=== PATIENT | male | born 1930 | race Caucasian/White ===

== ENCOUNTER → 2016-10-03 | Outpatient (CLI) | payer OTHER ==
[2016-07-16 13:07] VITALS: BP 116/48
--- NOTE | 2016-10-03 13:08 | RAD ---
HISTORY: COPD Study: Two view chest Comparison: 08/01/2016 Findings: There are persistent bilateral small pleural effusions, cardiomegaly, and central pulmonary vascular congestive changes. Postsurgical changes are seen status post sternotomy. The osseous structures ap pear intact. No pneumothorax. There is diffuse osteopenia. IMPRESSION: 1. Stable cardiomegaly with small bilateral pleural effusions and vascular congestion. Reported By:
== END ==
LOC: RAD 12:33
PROVIDERS: ATTEND Nurse Practitioner Family
DX: J44.9 Chronic obstructive pulmonary disease, unspecified (principal); R06.09 Other forms of dyspnea; R05 Cough
CPT/HCPCS: 71020

== ENCOUNTER 2017-01-23 14:53 | Emergency (ER) | payer OTHER ==
[2017-01-23 15:01] VITALS: BP 129/63; BMI 23.2
--- NOTE | 2017-01-23 16:13 | DR.GENAD ---
HPI - PCP Primary Care Physician: CHARU - HPI Comment HPI Comment: HISTORY BELOW. - Complaint/Symptoms Chief Complaint Doctors Comments: RIGHT CHEST AND RIGHT HAND PAIN. FELL YESTERDAY. SOB TODAY. Chief Complaint:: PT C/O SEVERE RT RIB PAIN S/P FALL. PT STATES HE FELL YESTERDAY AND FELL ONTO A CONCRETE FLOOR. - Nurses notes reviewed Nurses Notes Review: Yes - Source History Provided: Patient - Mode of Arrival Mode of Arrival: Ambulatory - Timing Onset of Chief Complaint: 01/22/17 Came on: Suddenly - Duration Duration: Constant Duration: Days - Severity Severity: Moderate PMH - PMH Past Medical History: Yes Past Medical History: Coronary Artery Disease, Dyslipidemia, [place], Renal Disease Past Surgical History: Yes Surgical History: CABG/Valve Surgery, Cholecystectomy, Tonsillectomy, TURP, Other - Family History History of Family Medical Conditions: Yes Family Medical History: Coronary Artery Disease, Hypertension - Social History Does any household member use tobacco: No Alcohol Use: None Do you use any recreational Drugs:: No Lives With: Family Lives Where: Home - infectious screening In the last 2 months have you had wt loss of >10#?: NO Have you had fever, night sweats or hemotysis?: No Have you traveled outside the country in the last 6 months?: No Isolation: Standard ROS - Review of Systems Constitutional: No Symptoms Reported Eyes: No Symptoms Reported ENTM: No Symptoms Reported Respiratoy: Short of Breath. negative: Productive Cough, Non-Productive Cough, Wheezing, Hemoptysis Cardiovascular: Chest Pain (RIGHT LOWER CHEST PAIN.) Gastrointestinal/Abdominal: No Symptoms Reported Genitourinary: No Symptoms Reported Neurological: No Symptoms Reported Musculoskeletal: Right, Hand Integumentary: Bruises Hematologic/Lymphatic: No Symptoms Reported Endocrine: No Symptoms Reported All Other Systems: Reviewed and Negative PE - Vital Signs Vitals: Temperature 97.5 F Pulse Rate 54 Respiratory Rate 20 Blood Pressure [Right Arm] 116/48 Blood Pressure [Left Arm] 133/78 Blood Pressure 129/63 O2 Sat by Pulse Oximetry 96 - General Limitations: No Limitations General Appearance: Alert - Head Head Exam: Normal Inspection - Eyes Eye exam: Normal Appearance - ENT ENT Exam: Normal External Ear Exam External Ear Exam: Normal External Inspection TM/Canal Exam: Bilateral Normal Nose Exam: Normal Nose Exam Mouth Exam: Normal Inspection Throat Exam: Normal Inspection - Neck Neck Exam: Trachea Midline - Chest Chest Inspection: Symmetric Chest Wall Rise - Respiratory Respiratory Exam: Normal Lung Sounds Bilat, Chest Wall Tenderness (RIGHT LOWER CHEST.) Respiratory Exam: Bilateral Clear to Auscultation - Cardiovascular Cardiovascular Exam: Regular Rate, Normal Rhythm, Normal Heart Sounds - Abdominal Exam Abdominal Exam: Normal Bowel Sounds, Soft. negative: Tenderness - Extremities Extremities Exam: Tenderness (LEFT HABD BRUISE SWOLLEN AND TENDER.) - Back Back Exam: Normal Inspection - Neurologic Neurological Exam: Alert, Oriented X3 - Psychiatric Psychiatric Exam: Normal Affect, Normal Mood - Skin Skin Exam: Erythema MDM - Additional Information Additional Information Obtained From: Family - Differential Diagnosis Differential Diagnosis: CONTUSION AND FRACTURE RIGHT RIB AND RIGHT HAND. Course - Treatment Treatment: SEE ORDERS - Education/Counseling Education/Counseling: Patient, Family, Education Educated On: Diagnosis, Needs for Follow Up ROR - XRAY XRAY Interpreted by: Radiologist XRAY Findings: REPORT DISCUSS WITH PATIENT. - Diagnosis Discharge Problem: Contusion of rib on right side Qualifiers: Encounter type: initial encounter Qualified Code(s): S20.211A - Contusion of right front wall of thorax, initial encounter Right rib fracture Qualifiers: Encounter type: initial encounter Rib fracture type: multiple ribs Fracture type: closed Qualified Code(s): S22.41XA - Multiple fractures of ribs, right side, initial encounter for closed fracture Contusion of right hand Qualifiers: Encounter type: initial encounter Qualified Code(s): S60.221A - Contusion of right hand, initial encounter Sprain of right hand Qualifiers: Encounter type: initial encounter Qualified Code(s): S63.91XA - Sprain of unspecified part of right wrist and hand, initial encounter - Discharge Plan Disposition: 01 HOME, SELF-CARE Condition: Stable Prescriptions: Hydrocodone-Acet 5 mg/325 mg [[place] 5/325 mg Tab] 1 tab PO Q12H PRN #14 tab PRN Reason: - Follow ups/Referrals Follow ups/Referrals: MARCO ANTONIO BOX [Primary Care Provider] - 01/24/17 - Instructions Instructions: Rib Contusion, Rib Fracture, [id number] Additional Instructions: RETURN TO ED IF WORSE.
--- NOTE | 2017-01-23 17:01 | RAD ---
HISTORY: Trauma, pain. Study: Three views of the right hand. Comparison: None. Findings: Diffuse osteopenia. Extensive vascular calcifications. Degenerative changes are seen about the hand and wrist. No acute cortical disruption or dislocation can be identified. No significant soft tissu e swelling or injury can be seen. IMPRESSION: No acute osseous abnormality. Reported By:
--- NOTE | 2017-01-23 17:34 | RAD ---
HISTORY: Trauma, pain. Study: Four views of the right ribs. Comparison: Chest x-ray dated October 04, 1999 17. Findings: The trachea is midline. The cardiac silhouette is enlarged but unchanged. Postsurgical changes stat us post CABG. Persistent blunting of the bilateral costophrenic angles. Chronic emphysematous joaquin es. No obvious focal consolidation, pleural effusion, or pneumothorax. Biapical scarring. Diffuse o steopenia. Mild deformity of the right lateral 6th and 7th ribs. These may represent nondisplaced fr actures. Remaining osseous structures appear intact. IMPRESSION: 1. No acute cardiopulmonary disease. 2. Question of nondisplaced fractures of the right lateral 6th and 7th ribs. Recommend clinical cor relation for point tenderness. Reported By:
== END 2017-01-23 18:02 | disposition home or self-care (01) ==
LOC: ER 15:08
DX: S20.211A Contusion of right front wall of thorax, initial encounter (principal); S22.41XA Multiple fractures of ribs, right side, initial encounter for closed fracture; S60.221A Contusion of right hand, initial encounter; S63.91XA Sprain of unspecified part of right wrist and hand, initial encounter; W19.XXXA Unspecified fall, initial encounter; Y92.9 Unspecified place or not applicable
CPT/HCPCS: 71111; 73130; 99282; 99283

== ENCOUNTER → 2017-04-01 | Outpatient (CLI) | payer OTHER ==
[~2017-04-01] MED LIST: NS 100 ML IV 100 ML IV ONE
[2017-04-01 09:38] LABS: CREATININE 1.3 mg/dL (0.70-1.30)
--- NOTE | 2017-04-03 09:22 | CT ---
HISTORY: Inguinal hernia without obstruction Study: CT of the abdomen pelvis Comparison: 04/16/2016 Technique: Serial axial images were obtained from the lung bases to the pubic symphysis without the u se of IV contrast. Findings: Chronic appearing interstitial changes are seen within both lungs. A diffuse reticulonodular and a tr ee-in-bud pattern are also seen and are most pronounced within the right lower lobe. A few focal subc entimeter well-defined nodules are demonstrated as well. Similar findings were noted on prior study. Small bilateral pleural effusions are also noted left greater than right. When appropriate, follow-up CT of the chest may be performed for further evaluation. Atherosclerotic changes are noted within e visualized coronary arteries and aorta. The liver demonstrates somewhat of a nodular appearance. Th e spleen, pancreas, and adrenals are grossly unremarkable in appearance given limitations of this non contrast exam. A subcentimeter exophytic lesion along the medial aspect of the lower pole of right ki dney is too small to accurately characterize. An approximate 2.5 cm exophytic lesion is seen along la teral margin of the right kidney and measured 2.7 cm on prior exam. This lesion does not demonstrate characteristics of a simple cyst may further evaluated with ultrasound if not already performed. A sm all hiatal hernia is noted. Stool and gas are seen throughout the colon to the level of the rectum. A few scattered diverticula are seen within the descending and sigmoid colon. The urinary bladder is s omewhat distended. Prostate is heterogeneous in appearance. Degenerative changes are seen throughout the visualized spine. Bilateral inguinal hernias fat are noted. No CT evidence of hydronephrosis is i dentified. IMPRESSION: Bilateral pleural effusions with additional pulmonary findings as discussed above. Follow-up CT of e chest may be performed for further evaluation as clinically indicated. Bilateral renal lesions as noted above. Correlation with ultrasound may be helpful if not already per formed. Diverticulosis. Bilateral inguinal hernias containing fat. Other findings as noted above. Reported By:
== END | disposition home or self-care (01) ==
LOC: RAD 09:02
PROVIDERS: ATTEND Nurse Practitioner Family
DX: K40.90 Unilateral inguinal hernia, without obstruction or gangrene, not specified as recurrent (principal); N28.9 Disorder of kidney and ureter, unspecified; K57.90 Diverticulosis of intestine, part unspecified, without perforation or abscess without bleeding; J90 Pleural effusion, not elsewhere classified
CPT/HCPCS: 36415; 74176; 82565; 84520; A4222

== ENCOUNTER → 2017-08-01 | Outpatient (CLI) | payer OTHER ==
--- NOTE | 2017-08-01 14:13 | RAD ---
History: Right hip pain Technique: AP view of the pelvis with frogleg lateral view of the right hip. Comparison:NONE Findings: The sacrum is partially obscured by overlying bowel contents. There is generalized osteopenia. There is no acute fracture or dislocation demonstrated. There is mild bilateral hip osteoarthrosis. There i s chondrocalcinosis of the articular cartilage of the right hip demonstrated. Impression: 1. No acute osseous abnormalities identified. 2. Mild bilateral hip osteoarthrosis. 3. 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 Reported By:
--- NOTE | 2017-08-01 16:09 | RAD ---
History: Right knee pain Technique: Three views of the right knee Comparison:NONE Findings: There is an oblique fracture of the proximal fibula. There is a subtle bony density projecting just l ateral to the lateral tibial plateau on the AP view. This is worrisome for a Segong fracture and has a high correlation with ACL injury. No significant joint effusion was demonstrated on the lateral vie w. Diffuse vascular calcifications are present. There is mild medial and patellofemoral osteoarthrosi s. Impression: 1. Nondisplaced fracture of the proximal fibula. 2. Subtle bony density projecting just lateral to the lateral tibial plateau, worrisome for Segond fr acture. This has a high correlation with an ACL injury. Please note that the lack of a significant sae int effusion, argues against this however. Clinical correlation is required. If there is concern for ligamentous injury correlation with MRI can be performed. Reported By:
--- NOTE | 2017-08-01 16:10 | RAD ---
History: Right hip pain. Back pain. Technique: Three views of the lumbar spine Comparison:NONE Findings: There is generalized osteopenia. There is mild to moderate multilevel DDD and spondylosis. This is mo st severe at L2-L3. There is no acute fracture, dislocation, or subluxation demonstrated. There is se maikol facet arthrosis at L4-5 and L5-S1 which result in neural foraminal stenosis. Impression: 1. No acute osseous abnormalities identified. 2. Multilevel degenerative changes are noted as discussed above. Neural foraminal stenosis is suggest ed at L4-5 and L5-S1. Reported By:
== END | disposition home or self-care (01) | DRG 556 ==
LOC: RAD 08:09
PROVIDERS: ATTEND Nurse Practitioner Family
DX: M25.551 Pain in right hip (principal); M54.5 Low back pain; M25.561 Pain in right knee; M51.36 Other intervertebral disc degeneration, lumbar region; S82.491A Other fracture of shaft of right fibula, initial encounter for closed fracture; X58.XXXA Exposure to other specified factors, initial encounter; M16.11 Unilateral primary osteoarthritis, right hip; M11.251 Other chondrocalcinosis, right hip
CPT/HCPCS: 72100; 73501; 73560

== ENCOUNTER 2018-07-19 07:29 | Inpatient (IN) ==
--- NOTE | 2018-07-19 08:03 | DR.DIZZY ---
HPI Time seen Time Seen by Provider: 07/19/18 07:54 PCP Primary Care Physician: MARIA TERESA WILSON Complaint Chief Complaint Doctor Comments: Patient presents to the ED via EMS with complaint of weakness. He his family reports that he has been very weak since coming home from the hospital [facility] status post treatment for pneumonia for two weeks. His health has been declining since being home. He has become very weak and not being able to walk on yesterday. The family has discussed to possibility of alf placement but have made a decision. 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 There is a home health nurse who comes two to three times weekly. Chief Complaint:: PT TO ER WITH C/O WEAKNESS, PT RECENTLY RELEASED FROM [facility] FOR PNEUMONIA, PT APPEARS TO BE VERY WEAK , PT LUNGS ARE CLEAR BILATERALLY AND PT HAS BRUISES TO HIS UPPER EXTS, UPON ARRIVAL EMS STATES PT'S SATS WERE IN THE 80'S ON RA, AND PT PLACED ON N/C 2 LPM,,BR Mode of Arrival Mode of Arrival: Stretcher Timing Onset of Chief Complaint: 07/18/18 Symptom Onset: Unknown Location of Weakness Weakness Location: None Context History of: None Stroke Symptoms: None PMH PMH Past Medical History: Yes Past Medical History: Coronary Artery Disease, Dyslipidemia, [place] and Renal Disease Past Surgical History: Yes Surgical History: CABG/Valve Surgery, Cholecystectomy, Tonsillectomy, TURP and Other Family History History of Family Medical Conditions: Yes Family Medical History: Coronary Artery Disease and Hypertension Social History Does patient currently use any type of tobacco product: No Have you used tobacco products in the last 12 months: No Type of Tobacco Use: None Does any household member use tobacco: No Alcohol Use: None Do you use any recreational Drugs:: No Lives With: Family Lives Where: Home infectious screening In the last 2 months have you had wt loss of >10#?: NO Have you had fever, night sweats or hemotysis?: No Have you traveled outside the country in the last 6 months?: No Isolation: Standard PE Vital Signs Vitals: Temperature 98.1 F Pulse Rate [Apical] 71 Pulse Rate 62 Respiratory Rate 21 Blood Pressure [Right Arm] 94/44 Blood Pressure [Left Arm] 105/55 Blood Pressure 85/45 O2 Sat by Pulse Oximetry 99 ROR Labs Reviewed Result Diagrams: 07/20/18 04:42 07/20/18 13:30 Laboratory: WBC 9.2 X10^3/uL (3.6-10.0) 07/20/18 04:42 RBC 3.02 X10^6/uL (4.7-6.0) L 07/20/18 04:42 Hgb 9.3 g/dL (13.5-18.0) L 07/20/18 04:42 Hct 28.0 % (42.0-54.0) L 07/20/18 04:42 MCV 92.6 fL (80.0-100.0) 07/20/18 04:42 MCH 30.8 pg (27.0-34.0) 07/20/18 04:42 MCHC 33.2 g/dL (33.0-35.0) 07/20/18 04:42 RDW 16.0 % (11.6-16.5) 07/20/18 04:42 Plt Count 83 X10^3/uL (150.0-450.0) L 07/20/18 04:42 MPV 8.1 fL (7.4-11.0) 07/20/18 04:42 Neut % (Auto) 81.5 % (42.0-75.0) H 07/20/18 04:42 Lymph % (Auto) 9.1 % (21.0-51.0) L 07/20/18 04:42 [place] % (Auto) 8.3 % (0.0-13.0) 07/20/18 04:42 Eos % (Auto) 0.9 % (0.9-2.9) 07/20/18 04:42 Baso % (Auto) 0.2 % (0.2-1.0) 07/20/18 04:42 Neut # (Auto) 7.5 x10^3/uL (2.2-4.8) H 07/20/18 04:42 Lymph # (Auto) 0.8 X10^3/uL (1.3-2.9) L 07/20/18 04:42 [place]wey # (Auto) 0.8 x10^3/uL (0.3-0.8) 07/20/18 04:42 Eos # (Auto) 0.1 x10^3/uL (0.0-0.2) 07/20/18 04:42 Baso # (Auto) 0.0 X10^3/uL (0.0-0.1) 07/20/18 04:42 Absolute Nucleated RBC 0.0 /100WBC 07/20/18 04:42 INR Target Range - 07/20/18 04:42 INR 6.84 (0.8-1.3) H* 07/20/18 04:42 APTT 100.5 SECONDS (22.9-36.5) H 07/20/18 04:42 PTT Comment - 07/20/18 04:42 Sodium 139 mmol/L (136-145) 07/20/18 13:30 Corrected Sodium TNP 07/20/18 13:30 Potassium 6.4 mmol/L (3.5-5.1) H* 07/20/18 13:30 Chloride 105 mmol/L (98-107) 07/20/18 13:30 Carbon Dioxide 20.5 mmol/L (21-32) L 07/20/18 13:30 BUN 167 mg/dL (7-18) H 07/20/18 13:30 Creatinine 13.20 mg/dL (0.70-1.30) H 07/20/18 13:30 Est GFR (MDRD) Af Amer 5 (>60) L 07/20/18 13:30 Est GFR (MDRD) Non-Af 4 (>60) L 07/20/18 13:30 Glucose 88 mg/dL (65-99) 07/20/18 13:30 Calcium 9.2 mg/dL (8.5-10.1) 07/20/18 13:30 Corrected Calcium 10.9 mg/dL (8.5-10.1) H 07/20/18 13:30 Magnesium 2.7 mg/dL (1.7-2.9) 07/20/18 04:42 Total Bilirubin 0.40 mg/dL (0.2-1.0) 07/20/18 13:30 AST 46 Units/L (15-37) H 07/20/18 13:30 ALT 11 Units/L (12-78) L 07/20/18 13:30 Alkaline Phosphatase 62 Units/L (46-116) 07/20/18 13:30 Creatine Kinase 340 Units/L (39-308) H 07/19/18 12:05 CK-MB (CK-2) 5.0 ng/mL (0-4.0) H* 07/19/18 12:05 CK/CKMB % Calc 1.5 % (<4) 07/19/18 12:05 Troponin I 0.39 ng/mL (0-1.5) 07/19/18 12:05 Total Protein 5.5 g/dL (6.4-8.2) L 07/20/18 13:30 Albumin 1.9 g/dL (3.4-5.0) L 07/20/18 13:30 Globulin 3.6 g/dL (2.5-4.5) 07/20/18 13:30 Albumin/Globulin Ratio 0.5 Ratio (1.1-2.1) L 07/20/18 13:30 Specimen Type Clean catch urine 07/19/18 09:17 Urine Color Yellow (YELLOW) 07/19/18 09:17 Urine Appearance Clear (CLEAR) 07/19/18 09:17 Urine pH 6.0 (5.0 - 8.0) 07/19/18 09:17 Ur Specific Pray 1.010 (1.000-1.030) 07/19/18 09:17 Urine Protein 3+ (NEGATIVE) 07/19/18 09:17 Urine Glucose (UA) Negative (NEGATIVE) 07/19/18 09:17 Urine Ketones Negative (NEGATIVE) 07/19/18 09:17 Urine Occult Blood 4+ (NEGATIVE) 07/19/18 09:17 Urine Nitrite Negative (NEGATIVE) 07/19/18 09:17 Urine Bilirubin Negative (NEGATIVE) 07/19/18 09:17 Urine Urobilinogen Normal (NORMAL) 07/19/18 09:17 Ur Leukocyte Esterase Negative (NEGATIVE) 07/19/18 09:17 Urine RBC 0-2 /HPF (NONE SEEN) 07/19/18 09:17 Urine WBC 0-2 /HPF (NONE SEEN) 07/19/18 09:17 Ur Squamous Epith Cells Negative /HPF (NEGATIVE) 07/19/18 09:17 Urine Bacteria Negative /HPF (NEGATIVE) 07/19/18 09:17 Ur Culture Indicated? No/not indicated 07/19/18 09:17 Digoxin 3.11 ng/mL (0.9-2) H* 07/20/18 04:42 Diagnosis Discharge Problem: Acute renal failure, Hyperkalemia, Hypercoagulable state
[2018-07-19] MEDS: NS 1000 ML 1,000 ML IV SCH ×2 (08:13→20:41)
[2018-07-19 08:26] LABS: BASOPHILS # (AUTO) 0.1 X10^3/uL (0.0-0.1); BASOPHILS % (AUTO) 0.6 % (0.2-1.0); EOSINOPHILS # (AUTO) 0.1 x10^3/uL (0.0-0.2); HEMATOCRIT 29.2 % (42.0-54.0); HEMOGLOBIN 9.9 g/dL (13.5-18.0); LYMPHOCYTES # (AUTO) 0.9 X10^3/uL (1.3-2.9); LYMPHOCYTES % (AUTO) 9.2 % (21.0-51.0); MEAN CORPUSCULAR HEMOGLOBIN 30.8 pg (27.0-34.0); MEAN CORPUSCULAR HGB CONC 33.9 g/dL (33.0-35.0); MEAN CORPUSCULAR VOLUME 90.7 fL (80.0-100.0); MEAN PLATELET VOLUME 8.2 fL (7.4-11.0); MONOCYTES # (AUTO) 0.9 x10^3/uL (0.3-0.8); MONOCYTES % (AUTO) 8.5 % (0.0-13.0); NEUTROPHILS # (AUTO) 8.3 x10^3/uL (2.2-4.8); NEUTROPHILS % (AUTO) 80.7 % (42.0-75.0); PLATELET COUNT 89 X10^3/uL (150.0-450.0); RED BLOOD COUNT 3.22 X10^6/uL (4.7-6.0); RED CELL DISTRIBUTION WIDTH 15.5 % (11.6-16.5); WHITE BLOOD COUNT 10.3 X10^3/uL (3.6-10.0)
--- NOTE | 2018-07-19 08:43 | CT ---
Exam: Head CT without contrast History: 87-year-old male with generalized weakness. Comparison: Previous head CT from 07/13/2016. Technique: Axial imaging was performed from the vertex to the base the skull without intravenous contrast being administered. Sagittal and coronal reformations were generated. Automated exposure control techniques were used for this exam. Findings: Generalized age related atrophic changes are again seen. However there is no evidence of intracranial hemorrhage or extracerebral fluid collections. Ventricles are symmetric in size and position with no mass effect. Patchy low density is present in a periventricular white matter distribution, consistent with chronic small vessel ischemia. On the bone windows, old bilateral parietal craniotomies are again seen. No acute bony abnormality is identified however. Visualized aspect of the paranasal sinuses and mastoid air cells are clear. Impression: No acute intracranial abnormality is seen on this exam. Chronic stable findings as described Reported By:
[2018-07-19 09:07] LABS: CALCIUM 9.2 mg/dL (8.5-10.1); CARBON DIOXIDE 20.9 mmol/L (21-32); CKMB % 1.5 % (<4); COR CA(FOR HYPOALB) 10.8 mg/dL (8.5-10.1); CREATININE 12.78 mg/dL (0.70-1.30); MAGNESIUM 2.9 mg/dL (1.7-2.9); TOTAL PROTEIN 5.7 g/dL (6.4-8.2); TROPONIN I 0.39 ng/mL (0-1.5)
[2018-07-19 09:14] LABS: CREATINE KINASE MB 4.5 ng/mL (0-4.0)
[2018-07-19 09:28] LABS: BILIRUBIN,URINE NEGATIVE (NEGATIVE); BLOOD/HEMOGLOBIN,URINE 4+ (NEGATIVE); GLUCOSE, URINE NEGATIVE (NEGATIVE); KETONES,URINE NEGATIVE (NEGATIVE); LEUKOCYTE ESTERASE ,URINE NEGATIVE (NEGATIVE); NITRITES,URINE NEGATIVE (NEGATIVE); PROTEIN,URINE 3+ (NEGATIVE); UROBILINOGEN,URINE NORMAL (NORMAL)
[2018-07-19 09:32] LABS: APPEARANCE,URINE CLEAR (CLEAR); COLOR,URINE YELLOW (YELLOW)
[2018-07-19 09:35] LABS: BACTERIA,URINE NEGATIVE /HPF (NEGATIVE); RBC,URINE 0-2 /HPF (NONE SEEN); SQUAMOUS EPITHELIAL CELL,UR NEGATIVE /HPF (NEGATIVE)
[2018-07-19] MEDS ORDERED: D50W ABBOJECT SYR IV ONE (09:51)
--- NOTE | 2018-07-19 09:51 | DR.DIZZY ---
HPI Time seen Time Seen by Provider: 07/19/18 07:54 PCP Primary Care Physician: MARIA TERESA WILSON Complaint Chief Complaint:: PT TO ER WITH C/O WEAKNESS, PT RECENTLY RELEASED FROM [facility] FOR PNEUMONIA, PT APPEARS TO BE VERY WEAK , PT LUNGS ARE CLEAR BILATERALLY AND PT HAS BRUISES TO HIS UPPER EXTS, UPON ARRIVAL EMS STATES PT'S SATS WERE IN THE 80'S ON RA, AND PT PLACED ON N/C 2 LPM,,BR Mode of Arrival Mode of Arrival: Stretcher Timing Onset of Chief Complaint: 07/18/18 Symptom Onset: Unknown Location of Weakness Weakness Location: None Context History of: None PMH PMH Past Medical History: Yes Past Medical History: Coronary Artery Disease, Dyslipidemia, [place] and Renal Disease Past Surgical History: Yes Surgical History: CABG/Valve Surgery, Cholecystectomy, Tonsillectomy, TURP and Other Family History History of Family Medical Conditions: Yes Family Medical History: Coronary Artery Disease and Hypertension Social History Does patient currently use any type of tobacco product: No Have you used tobacco products in the last 12 months: No Type of Tobacco Use: None Does any household member use tobacco: No Alcohol Use: None Do you use any recreational Drugs:: No Lives With: Family Lives Where: Home infectious screening In the last 2 months have you had wt loss of >10#?: NO Have you had fever, night sweats or hemotysis?: No Have you traveled outside the country in the last 6 months?: No Isolation: Standard PE Vital Signs Vitals: Temperature 97.9 F Pulse Rate 59 Respiratory Rate 20 Blood Pressure [Right Arm] 116/48 Blood Pressure [Left Arm] 133/78 Blood Pressure 95/45 O2 Sat by Pulse Oximetry 94 ROR Labs Reviewed Result Diagrams: 07/19/18 08:15 07/19/18 08:15 Laboratory: WBC 10.3 X10^3/uL (3.6-10.0) H 07/19/18 08:15 RBC 3.22 X10^6/uL (4.7-6.0) L 07/19/18 08:15 Hgb 9.9 g/dL (13.5-18.0) L 07/19/18 08:15 Hct 29.2 % (42.0-54.0) L 07/19/18 08:15 MCV 90.7 fL (80.0-100.0) 07/19/18 08:15 MCH 30.8 pg (27.0-34.0) 07/19/18 08:15 MCHC 33.9 g/dL (33.0-35.0) 07/19/18 08:15 RDW 15.5 % (11.6-16.5) 07/19/18 08:15 Plt Count 89 X10^3/uL (150.0-450.0) L 07/19/18 08:15 MPV 8.2 fL (7.4-11.0) 07/19/18 08:15 Neut % (Auto) 80.7 % (42.0-75.0) H 07/19/18 08:15 Lymph % (Auto) 9.2 % (21.0-51.0) L 07/19/18 08:15 [place] % (Auto) 8.5 % (0.0-13.0) 07/19/18 08:15 Eos % (Auto) 1.0 % (0.9-2.9) 07/19/18 08:15 Baso % (Auto) 0.6 % (0.2-1.0) 07/19/18 08:15 Neut # (Auto) 8.3 x10^3/uL (2.2-4.8) H 07/19/18 08:15 Lymph # (Auto) 0.9 X10^3/uL (1.3-2.9) L 07/19/18 08:15 [place] # (Auto) 0.9 x10^3/uL (0.3-0.8) H 07/19/18 08:15 Eos # (Auto) 0.1 x10^3/uL (0.0-0.2) 07/19/18 08:15 Baso # (Auto) 0.1 X10^3/uL (0.0-0.1) 07/19/18 08:15 Absolute Nucleated RBC 0.0 /100WBC 07/19/18 08:15 INR Target Range - 07/19/18 08:15 INR 7.00 (0.8-1.3) H* 07/19/18 08:15 Sodium 138 mmol/L (136-145) 07/19/18 08:15 Corrected Sodium 138 mmol/L (136-145) 07/19/18 08:15 Potassium 6.9 mmol/L (3.5-5.1) H* 07/19/18 08:15 Chloride 104 mmol/L (98-107) 07/19/18 08:15 Carbon Dioxide 20.9 mmol/L (21-32) L 07/19/18 08:15 BUN 149 mg/dL (7-18) H 07/19/18 08:15 Creatinine 12.78 mg/dL (0.70-1.30) H 07/19/18 08:15 Est GFR (MDRD) Af Amer 5 (>60) L 07/19/18 08:15 Est GFR (MDRD) Non-Af 4 (>60) L 07/19/18 08:15 Glucose 120 mg/dL (65-99) H 07/19/18 08:15 Calcium 9.2 mg/dL (8.5-10.1) 07/19/18 08:15 Corrected Calcium 10.8 mg/dL (8.5-10.1) H 07/19/18 08:15 Magnesium 2.9 mg/dL (1.7-2.9) 07/19/18 08:15 Total Bilirubin 0.40 mg/dL (0.2-1.0) 07/19/18 08:15 AST 48 Units/L (15-37) H 07/19/18 08:15 ALT 7 Units/L (12-78) L 07/19/18 08:15 Alkaline Phosphatase 70 Units/L (46-116) 07/19/18 08:15 Creatine Kinase 310 Units/L (39-308) H 07/19/18 08:15 CK-MB (CK-2) 4.5 ng/mL (0-4.0) H* 07/19/18 08:15 CK/CKMB % Calc 1.5 % (<4) 07/19/18 08:15 Troponin I 0.39 ng/mL (0-1.5) 07/19/18 08:15 Total Protein 5.7 g/dL (6.4-8.2) L 07/19/18 08:15 Albumin 2.0 g/dL (3.4-5.0) L 07/19/18 08:15 Globulin 3.7 g/dL (2.5-4.5) 07/19/18 08:15 Albumin/Globulin Ratio 0.5 Ratio (1.1-2.1) L 07/19/18 08:15 Specimen Type Clean catch urine 07/19/18 09:17 Urine Color Yellow (YELLOW) 07/19/18 09:17 Urine Appearance Clear (CLEAR) 07/19/18 09:17 Urine pH 6.0 (5.0 - 8.0) 07/19/18 09:17 Ur Specific [place] 1.010 (1.000-1.030) 07/19/18 09:17 Urine Protein 3+ (NEGATIVE) 07/19/18 09:17 Urine Glucose (UA) Negative (NEGATIVE) 07/19/18 09:17 Urine Ketones Negative (NEGATIVE) 07/19/18 09:17 Urine Occult Blood 4+ (NEGATIVE) 07/19/18 09:17 Urine Nitrite Negative (NEGATIVE) 07/19/18 09:17 Urine Bilirubin Negative (NEGATIVE) 07/19/18 09:17 Urine Urobilinogen Normal (NORMAL) 07/19/18 09:17 Ur Leukocyte Esterase Negative (NEGATIVE) 07/19/18 09:17 Urine RBC 0-2 /HPF (NONE SEEN) 07/19/18 09:17 Urine WBC 0-2 /HPF (NONE SEEN) 07/19/18 09:17 Ur Squamous Epith Cells Negative /HPF (NEGATIVE) 07/19/18 09:17 Urine Bacteria Negative /HPF (NEGATIVE) 07/19/18 09:17 Ur Culture Indicated? No/not indicated 07/19/18 09:17
[2018-07-19] MEDS ORDERED: HumuLIN R IV ONE (09:55)
[2018-07-19] MEDS ORDERED: D50W ABBOJECT SYR ONE (10:05)
[2018-07-19] MEDS ORDERED: HumuLIN R ONE (10:06)
--- NOTE | 2018-07-19 10:26 | RAD ---
Examination: AP chest History: SOB Comparison 05/30/2018 Findings: Continued cardiac enlargement of severe degree. Diffuse vascular congestion and interstitial increase. Increasing opacity left base obscuring the retrocardiac left lower lobe, diaphragm and costophrenic angle. Impression: Cardiomegaly with vascular congestion and increasing pleural-parenchymal opacity left base which may be related to pneumonia/pleural effusion. The bilateral interstitial pulmonary prominence may represent a combination of chronic fibrosis and more acute perivascular edema. Reported By:
[2018-07-19] MEDS ORDERED: AQUA-MEPHYTON ADULT INJ SC ONE (10:32)
[2018-07-19] MEDS ORDERED: CALCIUM GLUCONATE 10% IV ONE ×2 (10:32→10:33)
[2018-07-19] MEDS ORDERED: AQUA-MEPHYTON ADULT INJ ONE (10:33)
[2018-07-19] MEDS ORDERED: KAYEXALATE SUSP PO ONE (10:51)
[2018-07-19] MEDS ORDERED: BUTT CREAM (COMPOUND) TOP PRN (11:31)
[2018-07-19 11:52] VITALS: BMI 24.0
--- NOTE | 2018-07-19 11:56 | DR.H&P ---
H&P - History & Physical for Day of: H&P Date: 07/19/18 - Chief Complaint Chief Complaint: WEAKNESS, SOB - History of Present Illness History of Present Illness: 87 [facility] ER ADMISSION AFTER PRESENTING WITH CO WEAKNESS, PT RECENTLY RELEASED FROM [facility] FOR PNEUMONIA, PT APPEARS TO BE VERY WEAK , PT LUNGS ARE CLEAR BILATERALLY AND PT HAS BRUISES TO HIS UPPER EXTS, UPON [facility] STATES PT'S SATS WERE IN THE 80'S ON RA, AND PT PLACED ON N/C 2 LPM. PT HAD HX OF CHRONIC COPD WITH SUPPLEMENTAL O2 USE, CHF, MULTI JOINT OA, CAD, CVD, BPH, AFIB WITH CARDIAC CARE NURSE ANTI COAGULANT USE. PT BUN 148, CREAT 12.7 K+6.9 ON ER LABS. PT ADMITTED TO ICU FOR TREATMENT OF ACUTE RENAL FAILURE, HYPERKALEMIA. - Past Medical History Past Medical History: Anxiety, Arthritis, CHF, COPD, Coronary Artery Disease, Depression, Dyslipidemia, GERD, Hypertension, [place], Renal Disease Additional Medical History: BPH, ATRIAL FIB - Past Surgical History Surgical History: Appendectomy, Cholecystectomy Additional Surgical History: Brain surgery d/t blood clots, open heart x's 4, TMR, heart cath. - Family History Family Medical History: Diabetes Mellitus, Cancer, [place], Hypertension - Social History Does patient currently use any type of tobacco product: No Have you used tobacco products in the last 12 months: No Type of Tobacco Use: Cigarettes Does any household member use tobacco: No Alcohol Use: None Drug Use: None - Medications Home Medications: iodine Allergy (Verified 07/19/18 07:45) morphine Allergy (Verified 07/19/18 07:45) nifedipine [From Procardia] Allergy (Verified 07/19/18 07:45) penicillin G Allergy (Verified 07/19/18 07:45) CONTINUE taking the following medications warfarin 2.5 mg PO DIRECTED 07/19/18 [History] - Review of Systems Constitutional: Weakness Eyes: No Symptoms Reported ENT: No Symptoms Reported Respiratory: Shortness of Breath, SOB with Excertion, Wheezing Cardiovascular: Edema, Light Headedness Gastrointestinal: Nausea Genitourinary: Retention Musculoskeletal: Back Pain Skin: No Symptoms Reported Neurological: Weakness - Physical Exam Vital Signs: Temperature 97.7 F Pulse Rate [Apical] 52 Pulse Rate 54 Respiratory Rate 23 Blood Pressure [Right Arm] 116/48 Blood Pressure [Left Arm] 106/53 Blood Pressure 85/45 O2 Sat by Pulse Oximetry 94 Oriented: Person Eyes: Normal Ear: Normal Nose: Normal Throat: Dry Respiratory: Diminished Throughout Cardiovascular: Irregular, Edema : Normal Auscultation: Bowel Sounds: Normal Palpation: Normal Tenderness: Normal Skin: Decreased Turgur, Bruising Musculoskeletal: Right, Left, Arm, Motor Deficit, Instability, Crepitance Psychiatric: Depression Affect: Anxious Speech Pattern: Appropriate, Delayed - Assessment/Plan (1) Acute renal failure Status: Acute Plan: ADMIT ICU. CONTINUOUS CARDIAC MONITORING, BP MONITORING. RAPHAEL CATH, STRICT I & OS, RESP THERAPY, SUPPLEMENTAL O2. HOLD PLAVIX AND COUMADIN, REPEAT PT/INR, BLEEDING PRECAUTIONS. VIT K GIVEN IN ER, AM CXR, GENTLE HYDRATION. SERIAL CE, EKG. PAIN CONTROL (2) Hyperkalemia Status: Acute (3) Anticoagulant long-term use Status: Acute (4) CHF (congestive heart failure) Status: Acute (5) BPH (benign prostatic hyperplasia) Status: Chronic (6) CAD (coronary artery disease) Qualifiers: Associated angina: without angina Status: Chronic (7) Osteoarthritis Qualifiers: Osteoarthritis location: multiple joints Status: Chronic (8) HTN (hypertension) Qualifiers: Hypertension type: essential hypertension Qualified Code(s): I10 - Essential (primary) hypertension Status: Chronic (9) History of CVA (cerebrovascular accident) Status: Chronic (10) History of TX (myocardial infarction) Status: Chronic (11) Hyperlipidemia Status: Chronic - Allergies Allergies/Adverse Reactions: Allergies Allergy/AdvReac Type Severity Reaction Status Date / Time iodine Allergy Verified 07/19/18 07:45 morphine Allergy Verified 07/19/18 07:45 nifedipine [From Procardia] Allergy Verified 07/19/18 07:45 penicillin G Allergy Verified 07/19/18 07:45
[2018-07-19] MEDS: DUONEB 0.5 MG/3 MG NEB SCH ×3 (12:23→20:24)
[2018-07-19] MEDS: NYSTATIN POWDER TOP SCH ×2 (12:30→20:41)
[2018-07-19 13:13] LABS: CKMB % 1.5 % (<4); TROPONIN I 0.39 ng/mL (0-1.5)
[2018-07-19] MEDS: MUCOMYST 20% 200 MG/ML NEB SCH (20:24)
[2018-07-19] MEDS: PATIENT'S HOME MEDICATION PO SCH (20:41)
[2018-07-19] MEDS ORDERED: ZOCOR TAB 40 MG PO SCH (21:00)
[2018-07-20] MEDS: DUONEB 0.5 MG/3 MG NEB SCH ×5 (00:24→17:10)
[2018-07-20] MEDS ORDERED: NORCO 5/325 MG TAB PO PRN ×2 (04:00→15:02)
[2018-07-20] MEDS ORDERED: TYLENOL #3 TAB (W/CODEINE) PO PRN (04:03)
[2018-07-20] MEDS: TYLENOL #3 TAB (W/CODEINE) PO ONE ×2 (04:10→04:15)
[2018-07-20 05:26] LABS: BASOPHILS % (AUTO) 0.2 % (0.2-1.0); EOSINOPHILS # (AUTO) 0.1 x10^3/uL (0.0-0.2); EOSINOPHILS % (AUTO) 0.9 % (0.9-2.9); HEMOGLOBIN 9.3 g/dL (13.5-18.0); LYMPHOCYTES # (AUTO) 0.8 X10^3/uL (1.3-2.9); LYMPHOCYTES % (AUTO) 9.1 % (21.0-51.0); MEAN CORPUSCULAR HEMOGLOBIN 30.8 pg (27.0-34.0); MEAN CORPUSCULAR HGB CONC 33.2 g/dL (33.0-35.0); MEAN CORPUSCULAR VOLUME 92.6 fL (80.0-100.0); MEAN PLATELET VOLUME 8.1 fL (7.4-11.0); MONOCYTES # (AUTO) 0.8 x10^3/uL (0.3-0.8); MONOCYTES % (AUTO) 8.3 % (0.0-13.0); NEUTROPHILS # (AUTO) 7.5 x10^3/uL (2.2-4.8); NEUTROPHILS % (AUTO) 81.5 % (42.0-75.0); PLATELET COUNT 83 X10^3/uL (150.0-450.0); RED BLOOD COUNT 3.02 X10^6/uL (4.7-6.0); WHITE BLOOD COUNT 9.2 X10^3/uL (3.6-10.0)
[2018-07-20 05:44] LABS: ALANINE AMINOTRANSFERASE 7 Units/L (12-78); ALBUMIN 1.9 g/dL (3.4-5.0); ALKALINE PHOSPHATASE 63 Units/L (46-116); ASPARTATE AMINO TRANSFERASE 44 Units/L (15-37); CALCIUM 9.1 mg/dL (8.5-10.1); CHLORIDE 105 mmol/L (98-107); COR CA(FOR HYPOALB) 10.8 mg/dL (8.5-10.1); CREATININE 12.94 mg/dL (0.70-1.30); SODIUM 140 mmol/L (136-145); TOTAL PROTEIN 5.5 g/dL (6.4-8.2); eGFR NON BLACK RACES 4 (>60)
[2018-07-20 05:49] LABS: DIGOXIN 3.11 ng/mL (0.9-2)
--- NOTE | 2018-07-20 06:00 | RAD ---
Examination: Portable AP chest History: Hypoxia Comparison 07/19/2018 Findings: Continued marked cardiac enlargement with distended, indistinct pulmonary vessels, bilateral interstitial infiltrates and pleural effusions, left larger than right. Persistent retrocardiac opacification consistent with consolidation in the left lower lung. Impression: Persistent cardiomegaly and CHF with interstitial edema. Localized opacification left lower lung consistent with superimposed pneumonia or atelectasis in the left lower lobe. Reported By:
[2018-07-20] MEDS ORDERED: AQUA-MEPHYTON ADULT INJ SC ONE (06:49)
[2018-07-20] MEDS ORDERED: D50W ABBOJECT SYR IV ONE (06:52)
[2018-07-20] MEDS ORDERED: HumuLIN R IV ONE (06:52)
[2018-07-20] MEDS: KAYEXALATE SUSP PO SCH ×2 (07:17→13:15)
[2018-07-20] MEDS: MUCOMYST 20% 200 MG/ML NEB SCH (08:49)
[2018-07-20] MEDS: NYSTATIN POWDER TOP SCH (08:51)
[2018-07-20] MEDS ORDERED: COREG TAB 3.125 MG PO SCH (09:00)
[2018-07-20] MEDS ORDERED: ZESTRIL TAB 5 MG PO SCH (09:00)
[2018-07-20] MEDS ORDERED: LANOXIN PO SCH (09:00)
[2018-07-20] MEDS ORDERED: IMDUR PO SCH (09:00)
[2018-07-20] MEDS ORDERED: PriLOSEC PO SCH (09:00)
[2018-07-20] MEDS: PATIENT'S HOME MEDICATION PO SCH (10:16)
[2018-07-20] MEDS: NS 1000 ML 1,000 ML IV SCH (13:14)
[2018-07-20 13:56] LABS: CALCIUM 9.2 mg/dL (8.5-10.1); CARBON DIOXIDE 20.5 mmol/L (21-32); CHLORIDE 105 mmol/L (98-107); SODIUM 139 mmol/L (136-145); eGFR NON BLACK RACES 4 (>60)
[2018-07-20 13:57] LABS: ALANINE AMINOTRANSFERASE 11 Units/L (12-78); ALBUMIN 1.9 g/dL (3.4-5.0); ALKALINE PHOSPHATASE 62 Units/L (46-116); ASPARTATE AMINO TRANSFERASE 46 Units/L (15-37); COR CA(FOR HYPOALB) 10.9 mg/dL (8.5-10.1); TOTAL PROTEIN 5.5 g/dL (6.4-8.2)
[2018-07-20 14:04] LABS: BLOOD UREA NITROGEN 167 mg/dL (7-18)
[2018-07-20] MEDS ORDERED: TYLENOL 325 MG TAB PO PRN ×2 (14:22→18:47)
[2018-07-20] MEDS ORDERED: AQUA-MEPHYTON ADULT INJ ONE (15:12)
[2018-07-20] MEDS ORDERED: AQUA-MEPHYTON ADULT INJ SC SCH (15:30)
[2018-07-20] MEDS ORDERED: SNACK - Diabetic Appropriate PO SCH (20:00)
[2018-07-20 22:35] VITALS: BP 94/44
[2018-07-21 11:07] LABS: BLOOD UREA NITROGEN 159 mg/dL (7-18)
== END 2018-07-20 20:55 | disposition short-term general hospital (02) | DRG 683 ==
LOC: ER 07:30 → ICU 10:35
PROVIDERS: ADMIT Internal Medicine; ATTEND Internal Medicine
DX: E78.5 Hyperlipidemia, unspecified; I48.91 Unspecified atrial fibrillation; M19.90 Unspecified osteoarthritis, unspecified site; I25.10 Atherosclerotic heart disease of native coronary artery without angina pectoris; N40.1 Benign prostatic hyperplasia with lower urinary tract symptoms; Y92.9 Unspecified place or not applicable; Z86.73 Personal history of transient ischemic attack (TIA), and cerebral infarction without residual deficits; D68.9 Coagulation defect, unspecified; I25.2 Old myocardial infarction; T45.515A Adverse effect of anticoagulants, initial encounter; R33.8 Other retention of urine; I50.9 Heart failure, unspecified; E87.5 Hyperkalemia; N17.8 Other acute kidney failure; I11.0 Hypertensive heart disease with heart failure; J44.9 Chronic obstructive pulmonary disease, unspecified; Z87.01 Personal history of pneumonia (recurrent)
CPT/HCPCS: 36415; 51701; 51702; 70450; 71010; 71045; 80053; 80162; 81001; 82550; 82553; 83735; 84484; 85025; 85610; 85730; 93005; 94640; 96365; 96367; 96372; 96374; 96375; 99221; 99238; 99284; 99285; J0610; J1815; J3430; J3490; J7030; J7620